=== PATIENT | male | born 1955 | race Caucasian/White ===

== ENCOUNTER 2018-04-24 20:10 | Emergency (ER) | payer OTHER ==
[2018-04-24 21:47] VITALS: RESP 18; BMI 27.6
--- NOTE | 2018-04-24 21:55 | ED PDOC ---
Arrival/HPI - General Historian: Patient, Family - History of Present Illness Narrative History of Present Illness (Text): 04/24/18 21:53 Patient is a 63 year old [place] male with past medical history of asthma, renal stones, BPH who presents to the emergency department for right sided rib pain. Patient states that he was sitting down when the pain started this morning. This has never happened to him before. States that the pain is constant in nature. He tried taking Ibuprofen and aspirin at home with some relief. Pain is worse with deep inspiration. Denies any trauma. Denies any fevers, chills, headaches, dizziness, cp, palpitations, sob, abdominal pain, diarrhea/constipation, hematuria. Allergies: NKDA Medications: Flomax 0.4mg PO daily, Ventolin inhaler, Zyrtec Medical History: BPH, asthma Surgical History: Inguinal hernia repair Social History: Former smoker, quit 1 year ago; denies alcohol and drug use Family History: Hypertension Time/Duration: 24 hours Symptom Onset: Sudden Severity Level: 7, Moderate Context: Sitting <Tameka Franco - Last Filed: 04/25/18 00:58> <Momo Layton - Last Filed: 04/25/18 03:06> - General Chief Complaint: Back Pain Time Seen by Provider: 04/24/18 21:37 Past Medical History - Provider Review Nursing Documentation Reviewed: Yes - Tetanus Immunization Tetanus Immunization: Unknown <Tameka Franco - Last Filed: 04/25/18 00:58> Family/Social History - Physician Review Nursing Documentation Reviewed: Yes Family/Social History: Hypertension Smoking Status: Former Smoker Hx Alcohol Use: No Hx Substance Use: No <Tameka Franco - Last Filed: 04/25/18 00:58> Allergies/Home Meds <Tameka Franco - Last Filed: 04/25/18 00:58> <Momo Layton - Last Filed: 04/25/18 03:06> Allergies/Adverse Reactions: Allergies No Known Allergies Allergy (Verified 04/24/18 21:55) Review of Systems - Physician Review All systems were reviewed & negative as marked: Yes - Review of Systems Constitutional: Normal. absent: Fatigue, Fevers Eyes: absent: Vision Changes ENT: absent: Hearing Changes Respiratory: Normal. absent: SOB, Cough, Wheezing Cardiovascular: Normal. absent: Chest Pain, Palpitations Gastrointestinal: Normal. absent: Abdominal Pain, Constipation, Diarrhea, Nausea, Vomiting Genitourinary Male: Normal. absent: Dysuria, Hematuria Musculoskeletal: Other (right flank/rib pain) Skin: absent: Rash, Skin Lesions Neurological: Normal. absent: Headache, Dizziness <Tameka Franco - Last Filed: 04/25/18 00:58> Physical Exam Vital Signs Reviewed: Yes Vital Signs Temp Pulse Resp BP Pulse Ox 04/24/18 21:46 98.4 F 81 18 157/73 H 97 Temperature: Afebrile Blood Pressure: Hypertensive Pulse: Regular Respiratory Rate: Normal Appearance: Positive for: Non-Toxic Pain Distress: Mild Mental Status: Positive for: Alert and Oriented X 3 - Systems Exam Head: Present: Atraumatic, Normocephalic Mouth: Present: Moist Mucous Membranes Neck: Present: Normal Range of Motion Respiratory/Chest: Present: Other (RLL: decreased breath sounds and crackles). No: Respiratory Distress, Wheezes, Rhonchi, Tachypneic Cardiovascular: Present: Regular Rate and Rhythm, Normal S1, S2 Abdomen: Present: Normal Bowel Sounds. No: Tenderness Back: Present: CVA Tenderness (Right CVA tenderness) Upper Extremity: Present: Normal Inspection Lower Extremity: Present: Normal Inspection Skin: Present: Warm, Dry, Normal Color. No: Rashes Psychiatric: Present: Alert, Oriented x 3 <SalvadorTameka - Last Filed: 04/25/18 00:58> Vital Signs Temp Pulse Resp BP Pulse Ox 04/24/18 21:46 98.4 F 81 18 157/73 H 97 <Momo Layton - Last Filed: 04/25/18 03:06> Medical Decision Making ED Course and Treatment: 04/24/18 22:12 Patient seen and examined at bedside. Patient with right sided flank/rib pain that started this morning. On exam, patient with decreased breath sounds and crackles in the RLL, and right CVA tenderness. Plan - CT Chest/abdomen/pelvis w/o contrast - CBC, CMP, Urinalysis 04/25/18 00:52 Labs and imaging results reviewed. Patient with small right pleural effusion. We will discharge patient home and instruct him to follow up with his PMD o utpatient. - RAD Interpretation Narrative RAD Interpretations (Text): 04/24/18 23:34 CT chest/abdomen/pelvis: 1. Asymmetric enlargement right lobe of the thyroid 2. Left pelvic kidney. 3. No nephrolithiasis or hydronephrosis. 4. No perinephric fat stranding. No ureteral calculus. No bladder calculus. 5. Intestinal pattern nonobstructive. Appendix visualized and noninflammatory. 6. No acute diverticulitis. 7. No retroperitoneal adenopathy. 8. The heart is borderline in size. 9. The pulmonary bases appear well aerated though there is severe respiratory motion. There is a tiny right pleural effusion. Protection Mgr: Radiologist <Tameka Franco - Last Filed: 04/25/18 00:58> ED Course and Treatment: Seen and examined with resident. 63 y/o M p/w R flank pain. On exam, decreased breath sounds at R lung base. - Lab Interpretations Lab Results: 04/25/18 00:01 04/25/18 00:01 Lab Results 04/25/18 00:05: Urine Color Yellow, Urine Appearance Clear, Urine pH 6.0, Ur Specific [place] 1.025, Urine Protein Negative, Urine Glucose (UA) Negative, Urine Ketones Negative, Urine Blood Negative, Urine Nitrate Negative, Urine Bilirubin Negative, Urine Urobilinogen 0.2, Ur Leukocyte Esterase Negative 04/25/18 00:01: Sodium 138, Potassium 4.2, Chloride 103, Carbon Dioxide 27, Anion Gap 12, BUN 22 H, Creatinine 1.1, Est GFR ( Amer) > 60, Est GFR (Non-Af Amer) > 60, Random Glucose 113 H, Calcium 9.5, Total Bilirubin 0.7, AST 16 L, ALT 19, Alkaline Phosphatase 99, Total Protein 8.1, Albumin 4.3, Globulin 3.8, Albumin/Globulin Ratio 1.2 04/25/18 00:01: WBC 5.3, RBC 5.03, Hgb 12.7 L, Hct 40.3 L, MCV 80.1, MCH 25.2, MCHC 31.5, RDW 14.9 H, Plt Count 142, MPV 11.3 H, Gran % 53.4, Lymph % (Auto) 30.9, [place] % (Auto) 13.0 H, Eos % (Auto) 2.5, Baso % (Auto) 0.2, Gran # 2.81, Lymph # (Auto) 1.6, [place] # (Auto) 0.7 H, Eos # (Auto) 0.1, Baso # (Auto) 0.01 - RAD Interpretation Radiology Orders: 04/24/18 22:45 CHEST,ABDOMEN, PELVIS W/O CONT [CT] Stat - Medication Orders Current Medication Orders: Discontinued Medications Ketorolac Tromethamine (Toradol) 30 mg IVP STAT STA Stop: 04/24/18 22:19 Last Admin: 04/24/18 23:58 Dose: 30 mg MAR Pain Assessment Document 04/24/18 23:58 (Rec: 04/25/18 00:04 [id number] Pain Reassessment Is this a pain reassessment? Yes Sleep Is patient sleeping during reassessment? No Presence of Pain Presence of Pain Yes Pain Scale Used Protocol: PSCALES Pain Scale Used Numeric Location Left, Right or Bilateral Right Description Description Stabbing Intensity of Pain at present 6 IVP Administration Document 04/24/18 23:58 (Rec: 04/25/18 00:04 [id number] Charges for Administration # of IVP Administrations 1 <Momo Layton - Last Filed: 04/25/18 03:06> Disposition/Present on Arrival - Present on Arrival Any Indicators Present on Arrival: No History of DVT/PE: No History of Uncontrolled Diabetes: No Urinary Catheter: No History of Decub. Ulcer: No - Disposition Have Diagnosis and Disposition been Completed?: Yes Disposition Time: 00:54 Patient Plan: Discharge <Tameka Franco - Last Filed: 04/25/18 00:58> <Momo Layton - Last Filed: 04/25/18 03:06> - Disposition Diagnosis: Pleural effusion, right Disposition: HOME/ ROUTINE Patient Problems: Current Active Problems Problem Status Onset Pleural effusion, right Acute Condition: FAIR Discharge Instructions (ExitCare): Pleural Effusion Additional Instructions: - Please follow up with PMD within 2-3 days - If symptoms worsen, return to the emergency department Prescriptions: Ibuprofen [Motrin] 600 mg PO Q6H PRN #12 tab PRN Reason: Pain, Moderate (4-7) Forms: Patient [employer] (Thai)
[2018-04-25 00:26] LABS: ALB/GLOB RATIO 1.2 (1.1-1.8); ALBUMIN 4.3 g/dL (3.0-4.8); ALT/SGPT 19 U/L (7-56); AST/SGOT 16 U/L (17-59); BLOOD UREA NITROGEN 22 mg/dL (7-21); CALCIUM 9.5 mg/dL (8.4-10.5); GFR NON-AFRICAN AMERICAN > 60
[2018-04-25 00:30] LABS: HEMOGLOBIN 12.7 g/dL (14.0-18.0); MEAN CELL VOLUME 80.1 fl (80.0-105.0); MEAN CORPUSCULAR HEMOGLOBIN 25.2 pg (25.0-35.0); MEAN CORPUSCULAR HGB CONC 31.5 g/dl (31.0-37.0); RBC 5.03 10^6/uL (3.5-6.1); RED CELL DISTRIBUTION WIDTH 14.9 % (11.5-14.5); WHITE BLOOD COUNT 5.3 10^3/uL (4.5-11.0)
[2018-04-25 00:31] LABS: BASO # 0.01 K/mm3 (0.0-2.0); BASO % 0.2 % (0.0-3.0); EOS # 0.1 (0.0-0.7); EOS % 2.5 % (1.5-5.0); GRAN # 2.81 (1.4-6.5); GRAN % 53.4 % (50.0-68.0); LYMPH # 1.6 (1.2-3.4); LYMPH % 30.9 % (22.0-35.0); MEAN PLATELET VOLUME 11.3 fl (7.0-11.0); MONO # 0.7 (0.1-0.6)
[2018-04-25 00:40] LABS: URINE BILIRUBIN NEGATIVE (NEGATIVE); URINE BLOOD NEGATIVE (NEGATIVE); URINE GLUCOSE (UA) NEGATIVE (NEGATIVE); URINE LEUKOCYTE ESTERASE NEGATIVE Leu/uL (NEGATIVE); URINE PROTEIN NEGATIVE mg/dL (<30 mg/dL); URINE UROBILINOGEN 0.2 E.U./dL (<1 E.U./dL)
[2018-04-25 00:43] LABS: URINE APPEARANCE CLEAR (CLEAR); URINE COLOR YELLOW (YELLOW)
[2018-04-25 03:28] VITALS: BP 115/62; PULSE 71; TEMP 98.2; O2SAT 98
--- NOTE | 2018-04-25 17:57 | CT ---
Date of service: 2018-04-24 22:42:31 PROCEDURE: CT Chest, Abdomen and Pelvis without intravenous contrast HISTORY: right flank pain COMPARISON: No significant pericardial effusion. Ascending thoracic aorta measures approximately 3.7 cm and descending thoracic aorta measures approximately 2.9 cm. Minimal calcified atherosclerotic plaque along transverse portion of the aortic arch. Pulmonary trunk measures approximately 2.4 cm. TECHNIQUE: Radiation dose: Total exam DLP = 585.53 mGy-cm. This CT exam was performed using one or more of the following dose reduction techniques: Automated exposure control, adjustment of the mA and/or kV according to patient size, and/or use of iterative reconstruction technique. FINDINGS: CT CHEST WITHOUT CONTRAST: LUNGS: Mild centrilobular emphysematous changes upper lobe predominance. There also appears to be some passive/dependent type atelectasis in the posterior upper lung zones bordering the major fissure as well as posterior lower lung walters. No focal consolidation or effusion. Linear/curvilinear atelectasis/scarring changes also present within the lower lobes including the lingular and middle lobe regions. Small calcification right posterior sulcus likely representing small granuloma. MEDIASTINUM: Unremarkable. Normal caliber aorta and pulmonary arterial trunk. Normal size heart. LYMPH NODES: Few small nonspecific mediastinal lymph nodes are present the largest in the subcarinal region measuring 12 mm. Evaluation for hilar adenopathy is limited due to the lack of circulating intravenous contrast material. Trachea is midline and patent with no large central endoluminal lesions. There is a small hiatal hernia. Intermittent air seen throughout the esophagus as well. PLEURA: Unremarkable. No pneumothorax. No pleural fluid. BONES: The osseous structures appear intact. Minor multilevel degenerative spondylosis of the thoracic and lumbar spine. OTHER FINDINGS: There is enlarged right lobe thyroid gland with a heterogeneous attenuation. Small approximately 10 mm low-attenuation nodule left lobe thyroid gland. Recommend follow-up thyroid ultrasound. CT ABDOMEN AND PELVIS: LIVER: Liver is upper limits of normal measuring just over 18 cm in CC dimension. Unenhanced liver exhibits normal attenuation pattern without obvious masses or collections. GALLBLADDER AND BILE DUCTS: Gallbladder incompletely distended. No evidence of intraluminal gallbladder calculi. PANCREAS: Pancreas slightly atrophic and fatty replaced. No pancreatic masses or collections SPLEEN: Spleen is unremarkable without masses collections or calcification. ADRENALS: No adrenal lesions. KIDNEYS AND URETERS: Apparent left-sided pelvic kidney. Bowel occupies the left renal fossa. Right kidney is unremarkable with no evidence of nephrolithiasis or hydronephrosis. VASCULATURE: No aortic atherosclerotic calcification or mural plaque present. Unremarkable. No aortic aneurysm. BOWEL: Evaluation of the bowel is somewhat limited due to the lack of oral contrast. Stomach is incompletely distended which in part accounts for thick-walled appearance. Rule out gastritis. Visualized loops of small bowel exhibit normal contour and caliber. No evidence of acute mechanical small bowel obstruction. Note that the there does appear to be some fecalized content within loops of small bowel suggesting stasis. Moderately large amount of stool seen throughout the right and transverse colon suggesting mild fecal retention/constipation. No evidence of definitive mural wall thickening. APPENDIX: Normal-appearing appendix. PERITONEUM: Unremarkable. No free fluid. No free air. Small fat containing umbilical hernia and small bilateral fat containing inguinal hernias left slightly larger than right. LYMPH NODES: Unremarkable. No enlarged lymph nodes. BLADDER: Urinary bladder incompletely distended which may account for slight thick-walled appearance. Muscular hypertrophy presumably contributes. Correlation with urinalysis recommended. REPRODUCTIVE: Prostate gland is unremarkable. BONES: No acute fracture. OTHER FINDINGS: None. IMPRESSION: Enlarged right lobe thyroid gland with averaging is attenuation. Small nodule left lobe thyroid gland. Recommend follow-up thyroid ultrasound. Cardiomegaly. Mild/scarring linear atelectasis and or scarring both lung bases including the lingular and middle lobe regions. Suspect trace right-sided effusion. Apparent left sided pelvic kidney. Clinical correlation recommended. Findings suggest mild constipation. See above discussion for additional details and findings
== END 2018-04-25 01:19 | disposition home or self-care (01) ==
LOC: ED 20:10
DX: J90 Pleural effusion, not elsewhere classified (principal); Z87.891 Personal history of nicotine dependence
CPT/HCPCS: 71250; 74176; 80053; 81003; 85025; 96374; 99282; J1885